=== PATIENT | female | born 1990 | race Caucasian/White ===

== ENCOUNTER 2017-08-18 18:52 | Inpatient (IN) | payer OTHER ==
[2017-08-18] MEDS ORDERED: OXYTOCIN 30 UNITS/LR 500 ML IV ×2 (20:00)
[2017-08-18] MEDS ORDERED: MISOPROSTOL 200 MCG TAB PR (20:00)
[2017-08-18] MEDS ORDERED: METHYLERGONOVINE 0.2 MG INJ IM (20:00)
[2017-08-18] MEDS ORDERED: LIDOCAINE 1% (MPF) 30 ML INJ INJ (20:00)
[2017-08-18] MEDS ORDERED: CARBOPROST 250 MCG INJ IM (20:00)
[2017-08-18] MEDS ORDERED: BUTORPHANOL 2 MG INJ IV (20:00)
[2017-08-18] MEDS: LACTATED RINGER'S 1,000 ML IV (20:20)
[2017-08-18 20:27] LABS: ADD MAN DIFF? NO
[2017-08-18 20:28] LABS: WHITE BLOOD COUNT 6.3 10^3/ul (4.8-10.8)
[2017-08-18 20:28] LABS: BASOPHILS % 0.3 % (0.0-2.0); EOSINOPHILS # 0.1 10^3/ul (0.0-0.5); EOSINOPHILS % 0.8 % (0.0-7.0); HEMATOCRIT 34.1 % (37.0-47.0); HEMOGLOBIN 11.9 g/dl (12.0-16.0); LYMPHOCYTES % 32.4 % (15.0-51.0); MEAN CORPUSCULAR HEMOGLOBIN 32.9 pg (29.0-33.0); MEAN CORPUSCULAR HGB CONC 34.9 g/dl (32.0-37.0); MEAN CORPUSCULAR VOLUME 94.2 fl (82.0-101.0); MEAN PLATELET VOLUME 12.2 fl (7.4-10.4); MONOCYTE # 0.4 10^3/ul (0.3-0.9); MONOCYTES % 6.4 % (0.0-11.0); NEUTROPHIL # 3.8 10^3/ul (1.6-7.5); NEUTROPHILS % 59.9 % (39.0-77.0); PLATELET COUNT 161 10^3/UL (140-415); RED BLOOD COUNT 3.62 10^6/ul (4.20-5.40); RED CELL DISTRIBUTION WIDTH 12.7 % (11.5-14.5)
[2017-08-18 20:46] LABS: INR 0.87; PROTIME 11.9 Sec (11.9-14.9); PT RATIO 0.9
[2017-08-18 20:47] LABS: PARTIAL THROMBOPLASTIN TIME 24.9 Sec (25.0-35.0)
[2017-08-18 21:20] LABS: HEPATITIS B SURFACE ANTIGEN NEGATIVE (NEGATIVE)
[2017-08-19] MEDS: LACTATED RINGER'S 1,000 ML IV ×4 (06:09→18:40)
[2017-08-19] MEDS: OXYTOCIN 30 UNITS/LR 500 ML IV (12:12)
[2017-08-19] MEDS ORDERED: FENTAnyl 2MCG/ML-ROPIV 0.2% 100 ML (18:36)
[2017-08-19] MEDS ORDERED: DIPHENHYDRAMINE 50 MG INJ IV (21:30)
[2017-08-19] MEDS ORDERED: NALOXONE (0.4 MG/ML) INJ IV (21:30)
[2017-08-19] MEDS ORDERED: ZOLPIDEM 5 MG TAB PO (21:30)
[2017-08-19] MEDS ORDERED: HYDROmorphONE 0.5 MG/0.5 ML SYG IV ×2 (21:30)
[2017-08-19] MEDS ORDERED: ONDANSETRON 4 MG INJ IV (21:30)
[2017-08-19 22:49] LABS: RAPID PLASMA REAGIN NONREACTIVE (NR)
[2017-08-20] MEDS: FENTAnyl 2MCG/ML-ROPIV 0.2% 100 ML BAG EPI (01:25)
[2017-08-20] MEDS: LACTATED RINGER'S 1,000 ML IV (01:39)
[2017-08-20] MEDS ORDERED: LACTATED RINGER'S 1,000 ML IV* (03:33)
[2017-08-20] MEDS ORDERED: METHYLERGONOVINE 0.2 MG INJ IM (04:00)
[2017-08-20] MEDS ORDERED: OXYTOCIN 30 UNITS/LR 500 ML IV (04:00)
[2017-08-20] MEDS ORDERED: MISOPROSTOL 200 MCG TAB PR (04:00)
[2017-08-20] MEDS ORDERED: DIBUCAINE 1% 30 GM OINT PR (04:00)
[2017-08-20] MEDS ORDERED: HYDROCODONE/APAP (5/325) TAB PO (04:00)
[2017-08-20] MEDS ORDERED: CARBOPROST 250 MCG INJ IM (04:00)
[2017-08-20] MEDS: OXYTOCIN 30 UNITS/LR 500 ML IV (04:22)
[2017-08-20] MEDS: IBUPROFEN 600 MG TAB PO ×5 (05:42→23:41)
[2017-08-20] MEDS: BENZOCAINE 20% 56 ML SPRAY TOP (06:25)
[2017-08-20] MEDS: WITCH HAZEL/GLYCERIN PAD PR (06:25)
[2017-08-20] MEDS: HYDROCODONE/APAP (5/325) TAB PO ×2 (08:47→20:15)
[2017-08-21] MEDS: IBUPROFEN 600 MG TAB PO ×3 (05:33→17:25)
[2017-08-21 08:18] LABS: ADD MAN DIFF? NO
[2017-08-21 08:21] LABS: WHITE BLOOD COUNT 7.5 10^3/ul (4.8-10.8)
[2017-08-21 08:21] LABS: BASOPHILS % 0.4 % (0.0-2.0); EOSINOPHILS # 0.1 10^3/ul (0.0-0.5); EOSINOPHILS % 1.2 % (0.0-7.0); HEMATOCRIT 29.6 % (37.0-47.0); HEMOGLOBIN 10.1 g/dl (12.0-16.0); LYMPHOCYTES # 1.9 10^3/ul (0.8-2.9); LYMPHOCYTES % 25.7 % (15.0-51.0); MEAN CORPUSCULAR HEMOGLOBIN 33.3 pg (29.0-33.0); MEAN CORPUSCULAR HGB CONC 34.1 g/dl (32.0-37.0); MEAN CORPUSCULAR VOLUME 97.7 fl (82.0-101.0); MEAN PLATELET VOLUME 11.9 fl (7.4-10.4); MONOCYTE # 0.4 10^3/ul (0.3-0.9); MONOCYTES % 5.2 % (0.0-11.0); NEUTROPHIL # 5.1 10^3/ul (1.6-7.5); NEUTROPHILS % 67.1 % (39.0-77.0); PLATELET COUNT 110 10^3/UL (140-415); RED BLOOD COUNT 3.03 10^6/ul (4.20-5.40); RED CELL DISTRIBUTION WIDTH 13.2 % (11.5-14.5)
[2017-08-21] MEDS: LANOLIN 7 GM TUBE TOP (09:17)
[2017-08-21] MEDS: INFLUENZA VIRUS VACCINE 0.5 ML SYG IM* (10:31)
[2017-08-21] MEDS: OXYTOCIN 30 UNITS/LR 500 ML IV (10:38)
[2017-08-21] MEDS: SENNA TAB PO ×2 (12:35→21:56)
[2017-08-22] MEDS: IBUPROFEN 600 MG TAB PO ×3 (00:16→12:28)
[2017-08-22] MEDS: DIPHTH/TET/ACEL PERTUSS (ADULT) 0.5 ML VIAL IM* (09:00)
[2017-08-22] MEDS: VARICELLA VACCINE LIVE/PF 1,350 UNIT/0.5 ML ML SC* (09:00)
[2017-08-22] MEDS: SENNA TAB PO (09:05)
[2017-08-22] MEDS: MEASLES,MUMPS,RUBELLA VACCINE INJ SC* (09:57)
== END 2017-08-22 16:16 | disposition home or self-care (01) | DRG 775 ==
LOC: OBT 18:52 → PP1 08-20 06:13 → L-D 18:53 → OBT 19:30 → L-D 19:30
PROVIDERS: Obstetrics & Gynecology
PROC: 10E0XZZ Delivery of Products of Conception, External Approach (ICD-10-PCS; principal; 2017-08-19)
DX: O80 Encounter for full-term uncomplicated delivery (principal); Z3A.39 39 weeks gestation of pregnancy
CPT/HCPCS: 62319; 76818; 85025; 85610; 85730; 86592; 86900; 86901; 87340; 90686; 90715; 90716